=== PATIENT | female | born 1935 | race Caucasian/White ===

== ENCOUNTER 2018-01-18 17:31 | Emergency (ER) | payer MEDICARE ==
[2018-01-18 17:35] VITALS: RESP 18; TEMP 98.5
[2018-01-18] MEDS ORDERED: ACETAMINOPHEN TAB 325 MG TAB PO STA (18:07)
--- NOTE | 2018-01-18 18:36 | XR ---
EXAMINATION TYPE: XR Hip LT and AP Pelvis DATE OF EXAM: 01/18/2018 COMPARISON: NONE HISTORY: Left hip pain TECHNIQUE: A single AP view of the pelvis is obtained. Two views of the left hip are obtained. FINDINGS: There is no acute fracture/dislocation evident in the pelvis. The hip and sacroiliac join ts appear symmetric and unremarkable. The overlying soft tissue appears unremarkable. Two views of left hip show no acute fracture or dislocation. No focal lytic or sclerotic lesion seen in the proximal left femur. The overlying soft tissue is unremarkable. IMPRESSION: No acute fracture or dislocation.
--- NOTE | 2018-01-18 19:08 | ED ---
General Adult HPI - General Chief complaint: Extremity Injury, Lower Stated complaint: Left Hip Time Seen by Provider: 01/18/18 17:36 Source: patient, RN notes reviewed Mode of arrival: wheelchair Limitations: no limitations - History of Present Illness Initial comments: 82-year-old female presents to the emergency department for a chief complaint of left hip pain 1 hour. Patient states she was walking when she felt a sudden pain in her left hip. Patient states bearing weight exacerbates the pain and sitting still alleviates the pain. Patient denies any low back pain. Patient denies any head or neck pain. Patient did not fall or sustain any other injuries. Patient denies any previous surgeries on the left hip. Patient denies fevers or chills at home. She denies any pain in the knee or foot. Patient has no other complaints at this time including shortness of breath, chest pain, abdominal pain, nausea or vomiting, headache, or visual changes. - Related Data Home Medications Medication Instructions Recorded Confirmed Enalapril [Vasotec] 10 mg PO DAILY 02/01/16 02/02/16 Multivitamin [Multivitamins Adult 1 tab PO DAILY 02/01/16 02/02/16 Gummies] Propranolol [Inderal] 20 mg PO BID 02/01/16 02/02/16 Enalapril [Vasotec] 20 mg PO ONCE 02/02/16 02/02/16 Previous Rx's Medication Instructions Recorded Meclizine [Antivert] 25 mg PO TID PRN #12 tab 02/01/16 ALPRAZolam [Xanax] 0.5 mg PO Q8HR PRN #10 tablet 02/02/16 Allergies Allergy/AdvReac Type Severity Reaction Status Date / Time No Known Allergies Allergy Verified 01/18/18 17:35 Review of Systems ROS Statement: Those systems with pertinent positive or pertinent negative responses have been documented in the HPI. ROS Other: All systems not noted in ROS Statement are negative. Past Medical History Past Medical History: Coronary Artery Disease (CAD), Chest Pain / Angina, Hypertension History of Any Multi-Drug Resistant Organisms: None Reported Additional Past Surgical History / Comment(s): knee Past Psychological History: No Psychological Hx Reported Smoking Status: Never smoker Past Alcohol Use History: Daily Past Drug Use History: None Reported General Exam Limitations: no limitations General appearance: alert, in no apparent distress Head exam: Present: atraumatic, normocephalic, normal inspection Eye exam: Present: normal appearance, PERRL, EOMI. Absent: scleral icterus, conjunctival injection, periorbital swelling ENT exam: Present: normal exam, mucous membranes moist Neck exam: Present: normal inspection, full ROM. Absent: tenderness, meningismus, lymphadenopathy Respiratory exam: Present: normal lung sounds bilaterally. Absent: respiratory distress, wheezes, rales, rhonchi, stridor Cardiovascular Exam: Present: regular rate, normal rhythm, normal heart sounds. Absent: systolic murmur, diastolic murmur, rubs, gallop, clicks Extremities exam: Present: tenderness (Minimal tenderness noted to the lateral left hip), normal capillary refill (Capillary refill less than 2 seconds in the lower extremity is bilaterally. PD pulse 2+ in lower extremities bilaterally. Sensation intact in the lower extremities bilaterally), other (Patient is able to ambulate in the emergency department but does limp when using the left hip.) . Absent: full ROM (Patient has about 45 of hip flexion in the left hip. Pain worsened with flexion. Patient has increased pain with abduction of the left hip as well. Patient is able to extend left hip to neutral position.), joint swelling (No swelling or ecchymosis noted to the left hip), calf tenderness (No tenderness in the right calf, negative Homans sign) Back exam: Absent: tenderness Neurological exam: Present: alert, oriented X3, CN II-XII intact Psychiatric exam: Present: normal affect, normal mood Skin exam: Present: warm, dry, intact, normal color. Absent: rash Course Vital Signs 01/18/18 01/18/18 17:33 19:14 Temperature 98.5 F Pulse Rate 85 74 Respiratory 18 18 Rate Blood Pressure 209/65 209/94 O2 Sat by Pulse 98 99 Oximetry Medical Decision Making - Medical Decision Making 82-year-old female since to the emergency department for a chief complaint of left hip pain 1 hour. Patient states she was walking when she "stepped funny" and felt a sudden pain in the left hip. She states it is sharp pain on the lateral aspect of the hip worsened with bearing weight and movement of the hip. On exam patient has 45 of flexion of the left hip. Flexion does increase pain somewhat. Abduction also increases pain. Patient able to stand hip to neutral position. Neurovascular intact. Pedal pulses equal bilaterally. X-ray of the left hip and pelvis were obtained. No acute fracture or dislocation noted. Patient is ambulatory in the emergency department but does limp on the left hip. At this time without any findings on x-ray patient will be discharged home. She will use her walker at home for ambulation. Patient will follow up with orthopedics and primary care in 1-2 days. She will return here if she has any worsening pain or any other additional symptoms. Discussed with Dr Lopez. Patient's blood pressure is 209/94 when she is ready for discharge. Patient has known hypertension and denies any symptoms such as shortness of breath, chest pain, abdominal pain, headache or visual changes. Patient is due for blood pressure medications at this time. I did order these medications the patient refused to take them as she did not want to wait. She will take these at home. Patient is aware that we recommend taking the medications here to ensure that her blood pressure decreases. Disposition Clinical Impression: Hip pain Disposition: HOME SELF-CARE Condition: Good Instructions: Hip Pain (ED) Additional Instructions: Please rest ice the hip. Please use walker at home. Please continue to take Tylenol for pain. Return to the emergency department if you have any worsening symptoms or develops fevers. Otherwise follow-up with primary care or orthopedics. Is patient prescribed a controlled substance at d/c from ED?: No Referrals: Skip Roberts Jr, DO [Primary Care Provider] - 1-2 days Georgi Ford DO [Doctor of Osteopathic Medicine] - 1-2 days Time of Disposition: 19:49
[2018-01-18 19:16] VITALS: BP 209/94; PULSE 74
[2018-01-18] MEDS ORDERED: LISINOPRIL 20 MG TAB PO STA (20:05)
[2018-01-18] MEDS ORDERED: PROPRANOLOL 20 MG TAB PO STA (20:07)
== END 2018-01-18 20:33 | disposition home or self-care (01) ==
LOC: EC 17:31
DX: M25.552 Pain in left hip (principal); I10 Essential (primary) hypertension; I25.10 Atherosclerotic heart disease of native coronary artery without angina pectoris; Z79.899 Other long term (current) drug therapy; Z53.29 Procedure and treatment not carried out because of patient's decision for other reasons
CPT/HCPCS: 73502; 99283

== ENCOUNTER 2019-06-05 13:13 | Emergency (ER) | payer MEDICARE ==
[2019-06-05 13:26] VITALS: TEMP 97.8
--- NOTE | 2019-06-05 14:13 | ED ---
General Adult HPI - General Source: patient, family, RN notes reviewed Mode of arrival: ambulatory Limitations: no limitations <Jaren Barreto - Last Filed: 06/05/19 16:53> <Jb Lopez - Last Filed: 06/05/19 18:18> - General Chief complaint: Recheck/Abnormal Lab/Rx Stated complaint: rt sided eye drooping Time Seen by Provider: 06/05/19 13:40 - History of Present Illness Initial comments: Patient is a pleasant 84-year-old female presenting to the emergency department with complaints of right eyelid droopiness. Onset of symptoms was when she woke this morning. Symptoms have improved since that time. No double vision. Patient states it just feels like her eyelid is heavy. No history of similar symptoms previously. No speech problems or confusion. No isolated area of weakness. (Jaren Barreto) - Related Data Home Medications Medication Instructions Recorded Confirmed Enalapril [Vasotec] 10 mg PO DAILY 02/01/16 02/02/16 Multivitamin [Multivitamins Adult 1 tab PO DAILY 02/01/16 02/02/16 Gummies] Propranolol [Inderal] 20 mg PO BID 02/01/16 02/02/16 Enalapril [Vasotec] 20 mg PO ONCE 02/02/16 02/02/16 Previous Rx's Medication Instructions Recorded Meclizine [Antivert] 25 mg PO TID PRN #12 tab 02/01/16 ALPRAZolam [Xanax] 0.5 mg PO Q8HR PRN #10 tablet 02/02/16 Allergies Allergy/AdvReac Type Severity Reaction Status Date / Time No Known Allergies Allergy Verified 06/05/19 13:26 Review of Systems ROS Other: All systems not noted in ROS Statement are negative. Constitutional: Denies: fever Eyes: Reports: as per HPI. Denies: eye pain ENT: Denies: ear pain Respiratory: Denies: cough Cardiovascular: Denies: chest pain Endocrine: Denies: fatigue Gastrointestinal: Denies: abdominal pain Genitourinary: Denies: dysuria Musculoskeletal: Denies: back pain Skin: Denies: rash Neurological: Denies: headache, numbness, paresthesias, confusion, abnormal gait, vertigo <Jaren Barreto - Last Filed: 06/05/19 16:53> ROS Other: All systems not noted in ROS Statement are negative. <Jb Lopez - Last Filed: 06/05/19 18:18> ROS Statement: Those systems with pertinent positive or pertinent negative responses have been documented in the HPI. Past Medical History Past Medical History: Atrial Fibrillation, Coronary Artery Disease (CAD), Chest Pain / Angina, Hypertension History of Any Multi-Drug Resistant Organisms: None Reported Additional Past Surgical History / Comment(s): knee Past Psychological History: No Psychological Hx Reported Smoking Status: Never smoker Past Alcohol Use History: Daily Past Drug Use History: None Reported <Jaren Barreto - Last Filed: 06/05/19 16:53> General Exam Limitations: no limitations General appearance: alert, in no apparent distress Head exam: Present: normocephalic Eye exam: Present: other (Right eyelid is droopy however patient is able to fully open and close right eyelid without difficulty) ENT exam: Present: normal oropharynx Neck exam: Present: normal inspection Respiratory exam: Present: normal lung sounds bilaterally Cardiovascular Exam: Present: regular rate, normal rhythm GI/Abdominal exam: Present: soft. Absent: tenderness Extremities exam: Present: normal inspection Neurological exam: Present: alert, CN II-XII intact Expanded Neurological exam: Present: protecting the airway Speech: Present: fluid speech Cranial nerves: EOM's Intact: Normal Sensory exam: Upper Extremity Light Touch: Normal, Lower Extremity Light Touch: Normal Motor strength exam: RUE: 5, LUE: 5, RLE: 5, LLE: 5 Eye Response: (4) open spontaneously Motor Response: (6) obeys commands Verbal Response: (5) oriented Psychiatric exam: Present: normal affect, normal mood (Except for right eyelid droopiness) Skin exam: Present: normal color <Jaren Barreto - Last Filed: 06/05/19 16:53> Course Vital Signs 06/05/19 06/05/19 06/05/19 13:23 13:25 14:25 Temperature 97.8 F Pulse Rate 90 Respiratory 18 20 20 Rate Blood Pressure 201/101 203/105 O2 Sat by Pulse 98 98 Oximetry 06/05/19 06/05/19 06/05/19 15:25 16:00 17:00 Temperature Pulse Rate Respiratory 20 20 20 Rate Blood Pressure 198/112 214/94 194/111 O2 Sat by Pulse 98 98 98 Oximetry 06/05/19 18:08 Temperature Pulse Rate 63 Respiratory 16 Rate Blood Pressure 179/93 O2 Sat by Pulse 100 Oximetry EKG Findings - EKG Comments: EKG Findings:: A. fib with a rate of 78. QRS 86. QT 410. QTc 467. Normal axis. Septal Q waves. No acute ST change. <Jaren Barreto - Last Filed: 06/05/19 16:53> Medical Decision Making - Lab Data Result diagrams: 06/05/19 14:48 06/05/19 14:48 - Radiology Data Radiology results: report reviewed (Computed tomography scan of the brain shows degenerative and nonspecific white matter changes. No acute hemorrhage.), image reviewed (Chest x-ray shows no acute process.) <Jaren Barreto - Last Filed: 06/05/19 16:53> - Lab Data Result diagrams: 06/05/19 14:48 06/05/19 14:48 <Jb Lopez - Last Filed: 06/05/19 18:18> - Medical Decision Making Patient is requesting discharge. Patient states she feels essentially normal. Exam is near normal. Family states patient has significantly improved from this morning and agrees exam is near normal. Case was discussed with Dr. Guzmán who states patient can be discharged and return if any double vision or headaches. She does not feel patient needs CTA or further evaluation at this time. She does feel patient will need further evaluation as an outpatient. Case also discussed with Dr. Sexton who is covering for Dr. Delgado and also feels patient can be discharged and will follow-up in the beginning of the week. Patient again states H of ablation is chronic. Patient was given Vasotec for hypertension. Blood pressure has improved however still is somewhat high. Patient is still requesting discharge home. Blood pressure will be rechecked at this time. (Jaren Barreto) - Lab Data Lab Results 06/05/19 06/05/19 06/05/19 Range/Units 14:48 14:48 14:48 WBC 7.1 (3.8-10.6) k/uL RBC 4.39 (3.80-5.40) m/uL Hgb 13.0 (11.4-16.0) gm/dL Hct 39.6 (34.0-46.0) % MCV 90.4 (80.0-100.0) fL MCH 29.7 (25.0-35.0) pg MCHC 32.9 (31.0-37.0) g/dL RDW 13.0 (11.5-15.5) % Plt Count 208 (150-450) k/uL Neutrophils % 70 % Lymphocytes % 18 % Monocytes % 7 % Eosinophils % 3 % Basophils % 1 % Neutrophils # 4.9 (1.3-7.7) k/uL Lymphocytes # 1.3 (1.0-4.8) k/uL Monocytes # 0.5 (0-1.0) k/uL Eosinophils # 0.2 (0-0.7) k/uL Basophils # 0.1 (0-0.2) k/uL ESR 31 H (0-20) mm/hr PT 10.1 (9.0-12.0) sec INR 1.0 (<1.2) APTT 23.9 (22.0-30.0) sec Sodium 138 (137-145) mmol/L Potassium 4.5 (3.5-5.1) mmol/L Chloride 106 (98-107) mmol/L Carbon Dioxide 21 L (22-30) mmol/L Anion Gap 11 mmol/L BUN 22 H (7-17) mg/dL Creatinine 1.50 H (0.52-1.04) mg/dL Est GFR (CKD-EPI)AfAm 36 (>60 ml/min/1.73 sqM) Est GFR (CKD-EPI)NonAf 31 (>60 ml/min/1.73 sqM) Glucose 104 H (74-99) mg/dL Calcium 9.7 (8.4-10.2) mg/dL Total Bilirubin 0.9 (0.2-1.3) mg/dL AST 31 (14-36) U/L ALT 21 (4-34) U/L Alkaline Phosphatase 123 (38-126) U/L Troponin I (0.000-0.034) ng/mL Total Protein 8.5 H (6.3-8.2) g/dL Albumin 4.5 (3.5-5.0) g/dL TSH 2.280 (0.465-4.680) mIU/L Free T4 1.49 (0.78-2.19) ng/dL Free T3 pg/mL 3.3 (2.8-5.3) pg/ml 06/05/19 Range/Units 14:48 WBC (3.8-10.6) k/uL RBC (3.80-5.40) m/uL Hgb (11.4-16.0) gm/dL Hct (34.0-46.0) % MCV (80.0-100.0) fL MCH (25.0-35.0) pg MCHC (31.0-37.0) g/dL RDW (11.5-15.5) % Plt Count (150-450) k/uL Neutrophils % % Lymphocytes % % Monocytes % % Eosinophils % % Basophils % % Neutrophils # (1.3-7.7) k/uL Lymphocytes # (1.0-4.8) k/uL Monocytes # (0-1.0) k/uL Eosinophils # (0-0.7) k/uL Basophils # (0-0.2) k/uL ESR (0-20) mm/hr PT (9.0-12.0) sec INR (<1.2) APTT (22.0-30.0) sec Sodium (137-145) mmol/L Potassium (3.5-5.1) mmol/L Chloride (98-107) mmol/L Carbon Dioxide (22-30) mmol/L Anion Gap mmol/L BUN (7-17) mg/dL Creatinine (0.52-1.04) mg/dL Est GFR (CKD-EPI)AfAm (>60 ml/min/1.73 sqM) Est GFR (CKD-EPI)NonAf (>60 ml/min/1.73 sqM) Glucose (74-99) mg/dL Calcium (8.4-10.2) mg/dL Total Bilirubin (0.2-1.3) mg/dL AST (14-36) U/L ALT (4-34) U/L Alkaline Phosphatase (38-126) U/L Troponin I <0.012 (0.000-0.034) ng/mL Total Protein (6.3-8.2) g/dL Albumin (3.5-5.0) g/dL TSH (0.465-4.680) mIU/L Free T4 (0.78-2.19) ng/dL Free T3 pg/mL (2.8-5.3) pg/ml Disposition Is patient prescribed a controlled substance at d/c from ED?: No Time of Disposition: 16:57 <Jaren Barreto - Last Filed: 06/05/19 16:53> <Jb Lopez - Last Filed: 06/05/19 18:18> Clinical Impression: Ptosis Disposition: HOME SELF-CARE Condition: Stable Instructions (If sedation given, give patient instructions): Ptosis (ED) Additional Instructions: Please follow-up Saturday with Dr. Delgado's office. You'll also need to have neurology follow-up arranged. Return for increased weakness of the eyelid, weakness of other arts of the body including arms or legs or face, double vision, headache, difficulty talking, worsening symptoms or any other concerns. Please also follow-up with Dr. Delgado's office regarding blood pressure. Referrals: Skip Roberts Jr, [Primary Care Provider] - 1-2 days
--- NOTE | 2019-06-05 14:31 | CT ---
EXAMINATION TYPE: CT brain wo con for TPA DATE OF EXAM: 06/05/2019 COMPARISON: 02/01/2016 HISTORY: Rt eye drooping CT DLP: 1036.4 mGycm Automated exposure control for dose reduction was used. FINDINGS: Intracranial atherosclerotic changes are seen and there is [id number] degenerative change. Low- attenuation the white matter is nonspecific but most typical remote microvascular ischemia. Calvarium intact. No acute hemorrhage. Calcifications in the basal ganglia noted. IMPRESSION: DEGENERATIVE AND NONSPECIFIC WHITE MATTER CHANGES MOST TYPICAL REMOTE ISCHEMIA. NO ACUTE HEMORRHAGE.
--- NOTE | 2019-06-05 14:48 | XR ---
EXAMINATION TYPE: XR chest 2V DATE OF EXAM: 06/05/2019 COMPARISON: Prior chest x-ray 02/01/2016 HISTORY: Altered mental status TECHNIQUE: Frontal and lateral views of the chest are obtained. FINDINGS: There are prominent lung volumes with flattening the hemidiaphragms suggesting possible ACCOUNT[employer] D. Aorta is dense and possibly ectatic. There is no focal air space opacity, pleural effusion, or pne umothorax seen. The cardiac silhouette size is stable, upper limit of normal for size. The osseous structures are remarkable for multiple endplate fractures at the lower thoracic, upper lumbar spine. There are overlying cardiac leads. IMPRESSION: No acute cardiopulmonary process. Osteoporotic compression fractures.
[2019-06-05 15:09] LABS: Basophils # (A) 0.1 k/uL (0-0.2); Basophils % (A) 1 %; Eosinophils # (A) 0.2 k/uL (0-0.7); Eosinophils % (A) 3 %; HCT 39.6 % (34.0-46.0); Lymphocytes # (A) 1.3 k/uL (1.0-4.8); Lymphocytes % (A) 18 %; MCH 29.7 pg (25.0-35.0); MCHC 32.9 g/dL (31.0-37.0); MCV 90.4 fL (80.0-100.0); Mean Platelet Volume 8.3; Monocytes # (A) 0.5 k/uL (0-1.0); Monocytes % (A) 7 %; Neutrophils # (A) 4.9 k/uL (1.3-7.7); Neutrophils % (A) 70 %; Platelet Count 208 k/uL (150-450); RBC 4.39 m/uL (3.80-5.40); WBC 7.1 k/uL (3.8-10.6)
[2019-06-05 15:15] LABS: Partial Thromboplastin Time 23.9 sec (22.0-30.0); Prothrombin Time 10.1 sec (9.0-12.0)
[2019-06-05 15:23] LABS: Albumin 4.5 g/dL (3.5-5.0); Calcium 9.7 mg/dL (8.4-10.2); Potassium 4.5 mmol/L (3.5-5.1); Total Bilirubin 0.9 mg/dL (0.2-1.3); Total Protein 8.5 g/dL (6.3-8.2)
[2019-06-05] MEDS ORDERED: ENALAPRILAT 1.25 MG/ML 1 ML VIAL IVP STA (15:37)
[2019-06-05 15:41] LABS: T4, Free (Free Thyroxine) 1.49 ng/dL (0.78-2.19)
[2019-06-05 15:58] LABS: Erythrocyte Sedimentation Rate 31 mm/hr (0-20)
[2019-06-05] MEDS ORDERED: amLODIPine 5 MG TAB PO STA (16:59)
[2019-06-05] MEDS: hydrALAZINE HCL 20 MG/ML 1 ML VIAL IVP STA ×2 (17:58→18:08)
[2019-06-05 19:22] VITALS: BP 179/91; PULSE 61; RESP 18
== END 2019-06-05 17:21 | disposition home or self-care (01) ==
LOC: EC 13:13
DX: H02.401 Unspecified ptosis of right eyelid (principal); I10 Essential (primary) hypertension; I25.119 Atherosclerotic heart disease of native coronary artery with unspecified angina pectoris; Z79.899 Other long term (current) drug therapy; Z53.8 Procedure and treatment not carried out for other reasons
CPT/HCPCS: 36415; 70450; 71046; 80053; 83519; 84439; 84443; 84481; 84484; 85025; 85610; 85652; 85730; 86038; 86431; 93005; 96374; 99284

== ENCOUNTER 2020-05-21 19:09 | Emergency (ER) | payer MEDICARE ==
[2020-05-21 19:30] LABS: Basophils % (A) 0 %; Eosinophils # (A) 0.3 k/uL (0-0.7); Eosinophils % (A) 5 %; HCT 36.7 % (34.0-46.0); Lymphocytes # (A) 1.8 k/uL (1.0-4.8); Lymphocytes % (A) 23 %; MCH 29.3 pg (25.0-35.0); MCHC 32.9 g/dL (31.0-37.0); MCV 89.3 fL (80.0-100.0); Mean Platelet Volume 8.1; Monocytes # (A) 0.6 k/uL (0-1.0); Monocytes % (A) 7 %; Neutrophils # (A) 4.7 k/uL (1.3-7.7); Neutrophils % (A) 63 %; Platelet Count 177 k/uL (150-450); RBC 4.11 m/uL (3.80-5.40); RDW 13.5 % (11.5-15.5); WBC 7.6 k/uL (3.8-10.6)
--- NOTE | 2020-05-21 19:31 | CT ---
EXAMINATION TYPE: CT brain wo con for TPA DATE OF EXAM: 05/21/2020 COMPARISON: 06/05/2019 HISTORY: Altered mental status. CT DLP: 1098.8 mGycm Automated exposure control for dose reduction was used. There is patchy hypodensity in the periventricular white matter. There is no mass effect nor midline shift. There is no sign of hemorrhage. There is cerebral atrophy. Calvarium is intact skull base is i ntact. IMPRESSION: Cerebral atrophy and chronic small vessel ischemia. No acute intracranial abnormality. No change.
--- NOTE | 2020-05-21 19:36 | ED ---
General Adult HPI - General Chief complaint: Neuro Symptoms/Deficit Stated complaint: Poss Stroke Time Seen by Provider: 05/21/20 19:14 Source: family, EMS Mode of arrival: EMS Limitations: altered mental status - History of Present Illness Initial comments: Patient presents the ED by ambulance for evaluation with her son at bedside. Per son, they were watching television at about 6:40 PM (about 40 minutes ago) when he noticed that the patient was having trouble using her right hand and she was unable to use her left hand. He states that the patient was also having trouble with her speech, so he called 911. He states that the patient was fine just 10 minutes prior to this. He states that the patient has a history of atrial fibrillation, but she is not currently anticoagulated. He denies any complaint from the patient earlier today, and he is unaware of any trauma. He states that he is the patient's healthcare power of ip attorney. Patient's blood glucose was 121 per EMS. Patient is unable to provide any history at this time secondary to altered mental status. - Related Data Home Medications Medication Instructions Recorded Confirmed Enalapril [Vasotec] 10 mg PO DAILY 02/01/16 02/02/16 Multivitamin [Multivitamins Adult 1 tab PO DAILY 02/01/16 02/02/16 Gummies] Propranolol [Inderal] 20 mg PO BID 02/01/16 02/02/16 Enalapril [Vasotec] 20 mg PO ONCE 02/02/16 02/02/16 Previous Rx's Medication Instructions Recorded Meclizine [Antivert] 25 mg PO TID PRN #12 tab 02/01/16 ALPRAZolam [Xanax] 0.5 mg PO Q8HR PRN #10 tablet 02/02/16 Allergies Allergy/AdvReac Type Severity Reaction Status Date / Time No Known Allergies Allergy Verified 05/21/20 19:28 Review of Systems ROS Statement: Those systems with pertinent positive or pertinent negative responses have been documented in the HPI. ROS Other: All systems not noted in ROS Statement are negative. Limitations: ROS unobtainable due to patients medical condition Past Medical History Past Medical History: Atrial Fibrillation, Coronary Artery Disease (CAD), Chest Pain / Angina, Hypertension History of Any Multi-Drug Resistant Organisms: None Reported Additional Past Surgical History / Comment(s): knee Past Psychological History: No Psychological Hx Reported Smoking Status: Never smoker Past Alcohol Use History: Daily Past Drug Use History: None Reported General Exam Limitations: altered mental status General appearance: alert Head exam: Present: atraumatic, normocephalic Eye exam: Present: normal appearance, PERRL ENT exam: Present: mucous membranes moist Neck exam: Present: other (Trachea is in midline). Absent: meningismus Respiratory exam: Present: normal lung sounds bilaterally. Absent: respiratory distress, wheezes, rales, rhonchi, stridor Cardiovascular Exam: Present: regular rate, normal rhythm, normal heart sounds, other (Normal radial pulses bilaterally) GI/Abdominal exam: Present: soft. Absent: distended, tenderness, guarding Extremities exam: Absent: pedal edema Neurological exam: Present: alert, other (Left hemiparesis; left facial droop; rightward gaze/left omid-neglect; aphasia; NIH stroke scale score is 23) Skin exam: Present: warm, dry, intact, normal color Course Vital Signs 05/21/20 05/21/20 05/21/20 19:29 19:59 20:05 Temperature 98.1 F Pulse Rate 78 75 70 Respiratory 18 18 16 Rate Blood Pressure 194/100 210/100 161/72 O2 Sat by Pulse 95 99 99 Oximetry - Reevaluation(s) Reevaluation #1: 05/21/20 19:35 Case and H&P were discussed with Dr. Horowitz (neurointerventionalist). He states that he will review the patient's CT imaging and call me back. He states that given the patient's symptoms and timing, the patient is likely a TPA candidate. He has no further recommendations at this time. 05/21/20 19:48 Dr. Horowitz states that he has reviewed the patient's CTs and has spoken with the patient's son. 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 He recommends transferring the patient to [facility] for thrombectomy. He also recommends initiating TPA therapy at this time. He has no further recommendations at this time. 05/21/20 20:01 I have spoken with the patient's son/[facility] power of ip attorney. He is aware the patient's test results and my discussion with Dr. Horowitz as above. He confirms that the patient has not had any surgeries or head trauma that he is aware of in the past 3 months. He agrees with TPA administration at this time. He was explained and understands the risks of TPA, including the potential for life-threatening bleeding. 05/21/20 20:05 Case, H&P, test results, ED management and my discussion with Dr. Horowitz as above were discussed with nurse practitioner with the neurointerventional team at [facility]. Ambulance transfer to the [facility] ED was accepted by Dr. Barker (ED physician at [facility]). EKG Findings - EKG Comments: EKG Findings:: EKG is somewhat limited secondary to motion, atrial flutter with variable AV block, ventricular rate of 79 bpm, no definite ST or T-wave abnormality, normal QRS duration, normal QT interval Medical Decision Making - Medical Decision Making Patient's symptoms, exam, and CT imaging findings are consistent with acute CVA. Patient met inclusion criteria for TPA administration, and she did not meet any exclusion criteria. TPA therapy was initiated in the ED. Patient will be transferred to [facility] for attempted thrombectomy. - Lab Data Result diagrams: 05/21/20 19:15 05/21/20 19:15 Lab Results 05/21/20 05/21/20 05/21/20 Range/Units 19:15 19:15 19:15 WBC 7.6 (3.8-10.6) k/uL RBC 4.11 (3.80-5.40) m/uL Hgb 12.0 (11.4-16.0) gm/dL Hct 36.7 (34.0-46.0) % MCV 89.3 (80.0-100.0) fL MCH 29.3 (25.0-35.0) pg MCHC 32.9 (31.0-37.0) g/dL RDW 13.5 (11.5-15.5) % Plt Count 177 (150-450) k/uL MPV 8.1 Neutrophils % 63 % Lymphocytes % 23 % Monocytes % 7 % Eosinophils % 5 % Basophils % 0 % Neutrophils # 4.7 (1.3-7.7) k/uL Lymphocytes # 1.8 (1.0-4.8) k/uL Monocytes # 0.6 (0-1.0) k/uL Eosinophils # 0.3 (0-0.7) k/uL Basophils # 0.0 (0-0.2) k/uL PT 10.4 (9.0-12.0) sec INR 1.0 (<1.2) APTT 23.1 (22.0-30.0) sec Sodium 138 (137-145) mmol/L Potassium 3.9 (3.5-5.1) mmol/L Chloride 110 H (98-107) mmol/L Carbon Dioxide 18 L (22-30) mmol/L Anion Gap 10 mmol/L BUN 22 H (7-17) mg/dL Creatinine 1.56 H (0.52-1.04) mg/dL Est GFR (CKD-EPI)AfAm 34 (>60 ml/min/1.73 sqM) Est GFR (CKD-EPI)NonAf 30 (>60 ml/min/1.73 sqM) Glucose 137 H (74-99) mg/dL Calcium 8.8 (8.4-10.2) mg/dL Total Bilirubin 0.6 (0.2-1.3) mg/dL AST 38 H (14-36) U/L ALT 30 (4-34) U/L Alkaline Phosphatase 102 (38-126) U/L Troponin I (0.000-0.034) ng/mL Total Protein 7.5 (6.3-8.2) g/dL Albumin 4.0 (3.5-5.0) g/dL 05/21/20 Range/Units 19:15 WBC (3.8-10.6) k/uL RBC (3.80-5.40) m/uL Hgb (11.4-16.0) gm/dL Hct (34.0-46.0) % MCV (80.0-100.0) fL MCH (25.0-35.0) pg MCHC (31.0-37.0) g/dL RDW (11.5-15.5) % Plt Count (150-450) k/uL MPV Neutrophils % % Lymphocytes % % Monocytes % % Eosinophils % % Basophils % % Neutrophils # (1.3-7.7) k/uL Lymphocytes # (1.0-4.8) k/uL Monocytes # (0-1.0) k/uL Eosinophils # (0-0.7) k/uL Basophils # (0-0.2) k/uL PT (9.0-12.0) sec INR (<1.2) APTT (22.0-30.0) sec Sodium (137-145) mmol/L Potassium (3.5-5.1) mmol/L Chloride (98-107) mmol/L Carbon Dioxide (22-30) mmol/L Anion Gap mmol/L BUN (7-17) mg/dL Creatinine (0.52-1.04) mg/dL Est GFR (CKD-EPI)AfAm (>60 ml/min/1.73 sqM) Est GFR (CKD-EPI)NonAf (>60 ml/min/1.73 sqM) Glucose (74-99) mg/dL Calcium (8.4-10.2) mg/dL Total Bilirubin (0.2-1.3) mg/dL AST (14-36) U/L ALT (4-34) U/L Alkaline Phosphatase (38-126) U/L Troponin I 0.020 (0.000-0.034) ng/mL Total Protein (6.3-8.2) g/dL Albumin (3.5-5.0) g/dL Critical Care Time Critical Care Time: Yes (Acute CVA with TPA administration) Total Critical Care Time: 60 Disposition Clinical Impression: Cerebrovascular accident (CVA) Disposition: OTHER INSTITUTION NOT DEFINED Condition: Stable Is patient prescribed a controlled substance at d/c from ED?: No Referrals: Skip Roberts Jr, DO [Primary Care Provider] - 1-2 days Time of Disposition: 20:19 - Out of Hospital Transfer - Req. Specs Out of Hospital Transfer - Requested Specifics: Other Emergency Center ([facility])
[2020-05-21 19:46] LABS: Partial Thromboplastin Time 23.1 sec (22.0-30.0); Prothrombin Time 10.4 sec (9.0-12.0)
[2020-05-21] MEDS ORDERED: Alteplase PER PHARMACY Stroke 1 EACH MISC MISCELLANE PRN (19:48)
[2020-05-21] MEDS ORDERED: LABETALOL 5 MG/ML VIAL MDV IVP STA (19:48)
[2020-05-21] MEDS ORDERED: ALTEPLASE BOLUS 6 MG in EMPTY SYRINGE 1 SYR IV STA (19:50)
[2020-05-21] MEDS ORDERED: ALTEPLASE IV STA (19:50)
--- NOTE | 2020-05-21 19:58 | CT ---
EXAMINATION TYPE: CT angio head neck DATE OF EXAM: 05/21/2020 COMPARISON: None HISTORY: Altered mental status. CT DLP: 369 mGycm Automated exposure control for dose reduction was used. CONTRAST: Performed with IV Contrast, patient injected with 65 mL of Isovue 370. There are 3-D post processed images. There is normal branching pattern of the great vessels on the aortic arch. There is arterial flow in both subclavian arteries. 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 There is arterial flow in the left common carotid artery. There is arterial flow in the left internal and external carotid arteries. There is arterial flow in both vertebral arteries which are fairly symmetric. There is arterial flow in the vertebrobasilar artery system. There is more than 50% stenosis at the origin of the left internal carotid artery. There is arterial flow in both anterior middle and posterior cerebral arteries. The right anterior an d middle cerebral artery appear to fill through the anterior communicating artery. There is no flow i n the intracranial right internal carotid artery. There is diminished contrast opacification of the r ight middle cerebral artery. I see no mass effect. There is no evidence of intracranial aneurysm or n eovascularity. There is normal contrast opacification of the venous sinuses. 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 There is diminished art erial flow in the right middle cerebral artery compared to the left. No sign of intracranial hemodyna jassi stenosis.
[2020-05-21 20:04] LABS: Calcium 8.8 mg/dL (8.4-10.2); Potassium 3.9 mmol/L (3.5-5.1); Total Bilirubin 0.6 mg/dL (0.2-1.3); Total Protein 7.5 g/dL (6.3-8.2)
[2020-05-21 20:11] VITALS: PULSE 70; RESP 16
[2020-05-21 21:00] VITALS: BP 165/72; TEMP 98.3
== END 2020-05-21 20:50 | disposition other institution (70) ==
LOC: EC 19:09
DX: I63.9 Cerebral infarction, unspecified (principal); R29.810 Facial weakness; G81.94 Hemiplegia, unspecified affecting left nondominant side; R47.01 Aphasia; R29.723 NIHSS score 23; I10 Essential (primary) hypertension; I48.91 Unspecified atrial fibrillation; Z79.899 Other long term (current) drug therapy
CPT/HCPCS: 99291; 96365; 96368; 96375; 36415; 93005; 80053; 84484; 85025; 85610; 85730; 70496; 70450; 70498; J2997; Q9967